=== PATIENT | male | born 1990 | race Caucasian/White ===

== ENCOUNTER → 2021-03-29 07:00 | Outpatient (CLI) | payer OTHER, SELFPAY ==
--- NOTE | ~2021-03-29 | MR_ITS ---
EXAMINATION: MR shoulder LT wo con DATE: 03/29/2021 07:36 INDICATION: Left shoulder pain. TECHNIQUE: Magnetic resonance imaging (MRI) of the left shoulder was performed without intravenous co ntrast. Sequences included axial PD-weighted FS FSE, coronal oblique PD-weighted FS FSE and T2-weight ed FS FSE, and sagittal oblique T2-weighted FS FSE and T1-weighted FSE. COMPARISON: None. FINDINGS: Coracoacromial arch: The acromion undersurface is curved in morphology (type II). There is mild acromioclavicular joint os teoarthritis with surrounding edema. There is mild subacromial/subdeltoid bursitis. Rotator cuff: There is mild tendinopathy of the junction of supraspinatus and infraspinatus tendons. Teres minor te ndon is normal. Subscapularis tendon is normal. No tear. There is no asymmetric fatty atrophy of the rotator cuff muscle bellies. Biceps tendon and glenoid labrum: Biceps tendon is in bicipital groove. Intra-articular biceps tendon is normal. There is a tear of pos teroinferior glenoid labrum from 7:00 to 9:00. There is a 4 mm paralabral cyst inferoposteriorly at 7 :00. Fluid: There is no glenohumeral joint effusion. Bones/cartilage: Glenoid cartilage is normal. Humeral head cartilage is normal. IMPRESSION: 1. Mild acromioclavicular joint osteoarthritis. 2. Mild subacromial/subdeltoid bursitis. 3. Posteroinferior labral tear with small paralabral cyst. Reviewed, dictated and finalized at location A.
== END ==
PROVIDERS: PCP Emergency Medicine; Visit Provider Emergency Medicine
DX: M19.012 Primary osteoarthritis, left shoulder (principal); M75.52 Bursitis of left shoulder; S43.492A Other sprain of left shoulder joint, initial encounter; X58.XXXA Exposure to other specified factors, initial encounter
CPT/HCPCS: 73221

== ENCOUNTER 2021-09-27 17:18 | Outpatient (CLI) | payer OTHER, SELFPAY | END 2021-09-27 17:19 | disposition home or self-care (01) | LOC: ANHLAB 17:20 | PROVIDERS: PCP Emergency Medicine; Visit Provider Anesthesiology | DX: K40.90 Unilateral inguinal hernia, without obstruction or gangrene, not specified as recurrent (principal); Z01.818 Encounter for other preprocedural examination | CPT/HCPCS: 36415; 86850; 86900; 86901 ==

== ENCOUNTER 2021-10-05 01:30 | Day surgery (SDC) | payer OTHER, SELFPAY ==
[2021-09-27 14:02] VITALS: BMI 26.4
--- NOTE | 2021-09-27 14:07 | SUR.PREOP ---
Report to the Outpatient Waiting Room, entrance under the green pavilion located off [facility], at time 10:00 on date 10/05/21. OR Time: 12:00. - You and your visitor will be asked a series of questions to screen for COVID 19 for your protection. - Only one visitor is allowed at this time. - The patient visitor is requested to leave or wait in car when not with patient. - A mask is required within the hospital. Patients may have clear liquids (water, carbonated beverages, clear teas, apple juice) until 3 hours prior to surgery with a maximum of 20 ounces. - No food from midnight until time of surgery - Infants may have breast milk until 4 hours before surgery, formula 6 hours prior to surgery. - Children will be allowed to drink immediately following surgery. If applicable, please bring a bottle or sippy cup to assist with drinking. Juice, water, soda, and popsicles are readily available. For infants on formula, please bring formula the day of surgery. Pacifiers are allowed. Take the following medications with a SIP of water the morning of surgery: N/A Medications to discontinue per physician N/A Date to take last dose N/A Please no make-up, nail yi, hairspray, perfume, deodorant, or body powder the day of surgery. No jewelry (including any body piercings) or valuables the day of surgery, leave them at home. Please take a shower or bath the night before, or the morning of, surgery with an antibacterial soap. Wear comfortable, loose fitting clothing. Children are encouraged to wear pajamas. - Jewelry must be removed prior to entering the operating room. Rings and piercings that are not removed may be cut off. - The hospital will not accept responsibility for valuables. - Please leave all valuables, including medications, at home the day of surgery. If you are going home after surgery, a licensed vibratory pile driver must drive you home. - NO public transportation without another adult. - We recommend that an adult stay with you for 24 hours following discharge. - We also recommend that you do not drive, make important decision, drink alcoholic beverages, or take any drugs that were not prescribed by your health care provider for at least 24 hours after your discharge time. For Pediatric surgeries, we recommend two adults accompany the child home (only one inside the building at this time). Follow any additional instructions given to you from your surgeon. If you or anyone in your household have experienced Covid symptoms in the past week, please notify your surgeon or the nurse liaison at the phone number below for possible testing. Telephone instructions given to TEVIN STEPHENSON and asked if any additional questions and then verbalized understanding. Patient advised to call surgeon office or pre surgery nurse liaison [phone] if any additional questions.
[2021-10-05] VITALS (12 sets, daily range): BP systolic 132–150; BP diastolic 78–99; PULSE 73–87; RESP 9–18; TEMP 36.4–36.9; O2SAT 98–100; BMI 25.7
[2021-10-05] MEDS: KETOROLAC 15 MG/ML VIAL (*BKC) IV PUSH (10:29)
[2021-10-05] MEDS: LACTATED RINGERS 1,000 ML 30 ML IV CONT ×2 (10:29→13:53)
[2021-10-05] MEDS: ACETAMINOPHEN 500 MG TABLET 1000 MG PO (10:29)
--- NOTE | 2021-10-05 11:19 | P.PNAN_ITS ---
Anes - Initial Pre Proc Eval Procedure: Operation Date: 10/05/21 12:00 Proposed Procedures p Robotic Assisted Right Inguinal Hernia Repair with Mesh - Kennedi Lubin MD Date/Time: 10/05/21 11:19 Surgeon: Kennedi Lubin MD Pre Op Diagnosis: Rt Ing Hernia Patient Data Age: 30 Gender: M Height: 1.85 m Weight: 88.4 kg Last Vital Signs Temp 36.9 C 10/05/21 10:14 Pulse 76 10/05/21 10:14 Resp 18 10/05/21 10:14 BP 144/87 H 10/05/21 10:14 Pulse Ox 99 10/05/21 10:14 Allergies Allergy/AdvReac Type Severity Reaction Status Date / Time No Known Allergies Allergy Verified 10/05/21 10:10 Home Medications Medication Instructions Recorded Confirmed Type albuterol sulfate 90 mcg/actuation 1 inh INHALATION PRN PRN 04/06/21 10/05/21 History aerosol inhaler fluticasone propionate 45 2 puff INHALATION PRN PRN 04/06/21 10/05/21 History mcg-salmeterol 21 mcg/actuation HFA inhaler Zyrtec 1 cap PO DAILY 09/27/21 09/27/21 History Patient hx anesthesia problems: post op nausea/vomiting Family hx anesthesia problems: none Results Review: All pre-operative results and documents have been reviewed as part of the pre-operative evaluation. [facility] Past Medical History Medical History Asthma Left shoulder pain Surgical History Surgical History No significant past surgical history Family History Family History Mother Patient's mother is in good health Father Patient's father is in good health Social History Social History Smoking status: Never smoker Smokeless tobacco user: chewing tobacco Second hand tobacco smoke exposure: No Alcohol intake: current Substance use: never Substance use type: does not use Living arrangements: alone Additional occupation/education comments: LEGAL CONSULTANT Spiritual care concerns: No Anes - Eval Final PreProcedure Day of Procedure 10/05/21 11:19 Patient weight: overweight Heart: regular rate and rhythm Lungs: clear to auscultation Airway: Mallampati scale class II Neurological: alert and oriented Last oral intake: >/= 8 hours ASA classification: II Emergent: no Anesthetic plan: proceed Anesthesia type and monitoring: general ETT and standard monitoring Results Review: All pre-operative results and documents have been reviewed as part of the pre-operative evaluation. Informed Consent: The patient's anesthetic plan and its attendant risks and benefits were discussed with the patient/family/POA. Questions were solicited and answers provided to the satisfaction of the patient/family/POA.
--- NOTE | 2021-10-05 11:45 | WPDHPUPDATE1 ---
History and Physical Update Update Date/Time: 10/05/21 11:45 History and Physical has been reviewed, including an updated exam of the patient. There are NO changes in the patient's condition. Risks, benefits, and alternatives have been discussed and questions answered. Patient agrees to proceed with procedure.
[2021-10-05] MEDS: ceFAZolin 2 GM/D5W 50 ML 2 GM/50 ML BAG IVPB (11:58)
--- NOTE | 2021-10-05 13:40 | W.PM.PROC2 ---
Procedure Note - Detailed Date of Procedure 10/05/21 Pre-op Diagnosis right inguinal hernia Post-op Diagnosis Same Procedure Performed robotic assisted right inguinal hernia repair with mesh Surgeon Kennedi Lubin MD Anesthesia General Indications 30 y/o M presenting c reducilbe RIH Findings indirect right inguinal hernia Description of Procedure Patient was brought into the operating room and placed in the supine position. After adequate induction of general anesthesia, the patient was prepped and draped in normal sterile fashion. A time-out was then done to verify the patient's identity, as well as the procedure being performed. Began by making a 8 mm incision in the supraumbilical region, a Veress needle was then placed into the peritoneal cavity. CO2 gas was then insufflated and after adequate pneumoperitoneum was achieved, the Veress needle was removed. I then placed an 8 mm trocar through this incision. I then placed the endoscope through this trocar site and under direct visualization placed 2 further 8 mm ports in the right and left mid abdomen. The [employer] robot was then docked to the 3 trocar sites. I then scrubbed out and went to the robotic console. Upon examining the pelvis, it was noted that the patient had a moderate right inguinal hernia. The left side was examined and no hernia defect was noted. I began by making a preperitoneal flap approximately 6 cm superior to the defect. This flap was carried medially past the umbilical ligaments in laterally to the transversalis. It then began dissection of my medial compartment taking this down to the pubic tubercle. I then began the lateral dissection taking this down to the transversalis fascia. Once these compartments were achieved, I began dissection around the cord structures. A large indirect hernia was noted at this point. Using careful dissection, was able to reduce indirect hernia sac off the cord structures. Once this was adequately done, I went ahead and placed a large piece of 3D Max mesh into the abdominal cavity. The mesh was carefully positioned, centering the center of the mesh over the indirect defect. Once this was done, was very satisfied with our repair. Using 3-0 Vicryl sutures, I tacked the mesh medially to Kiel's ligament. Two lateral sutures were placed from the mesh to the transversalis fascia. I then closed the peritoneal flap with a running 2.0 V Lock suture. The abdomen was then desufflated, and all ports were removed. All incisions were then closed with the 4.0 monocryl suture. Dermabond was placed on each wound. The patient tolerated the procedure well, was extubated in the operating room postoperatively, and will now be transferred to the recovery room in stable condition. Implants large 3DMax mesh Estimated Blood Loss 5 Drains No Packing No Pathology None sent Complications No immediate complications Condition Stable Disposition PACU
--- NOTE | 2021-10-05 14:07 | SUR.PHASEI ---
called dr black,pt states feeling tightness with breathing,no wheezing ausculated,hx asthma, orders for nebulizer respiratory tx
[2021-10-05] MEDS: ALBUTEROL SULFATE NEB 2.5 MG/0.5 ML INH INHALATION (14:12)
[2021-10-05] MEDS: fentaNYL CITRATE INJ (*CRX) 100 MCG/2 ML VIAL 25 MCG IV PUSH ×4 (14:26→14:44)
[2021-10-05] MEDS: oxyCODONE HCL (*CRX) 5 MG TAB IR PO (15:12)
[2021-10-05] MEDS: ONDANSETRON INJ 4 MG/2 ML VIAL IV PUSH (15:44)
[2021-10-05] MEDS: SCOPOLAMINE 1.5 MG PATCH TRANSDERM (15:44)
== END 2021-10-05 16:16 | disposition home or self-care (01) ==
PROVIDERS: PCP Emergency Medicine; Visit Provider Surgery
PROC: 8E0Y4CZ Robotic Assisted Procedure of Lower Extremity, Percutaneous Endoscopic Approach (ICD-10-PCS; CPT 49650; principal; 2021-10-05 12:00)
DX: K40.90 Unilateral inguinal hernia, without obstruction or gangrene, not specified as recurrent (principal)
CPT/HCPCS: 49650; 94640; A9270; C1781; J0690; J1100; J1885; J2250; J2405; J2704; J3010; J7030; J7120

== ENCOUNTER → 2022-01-16 08:13 | Outpatient (CLI) | payer OTHER, SELFPAY ==
--- NOTE | ~2022-01-16 | CT_ITS ---
EXAMINATION: CT abdomen pelvis wo con DATE: 01/16/2022 08:51 INDICATION: Right lower quadrant pain TECHNIQUE: Computed tomography (CT) of the abdomen and pelvis was performed without intravenous contr ast. The dose-length product was 543.53 mGy-cm. Automated exposure control and iterative reconstructi on technique were employed. COMPARISON: CT dated 12/21/2017. FINDINGS: Lung bases are unremarkable. Heart size is normal. No significant pleural or pericardial ef fusion. Small 1 cm hypodense lesion right hepatic lobe, most likely benign cyst or hemangioma. The sp ant, pancreas, adrenal glands and kidneys are unremarkable. Gallbladder is present. Nonobstructive b owel gas pattern. The appendix is unremarkable. Colonic diverticulosis without evidence for diverticu litis. No renal/ureteral stones or hydronephrosis. No free air or free fluid. There is suggestion of previous right lower abdominal wall/inguinal hernia repair. Clinically correlate. No acute osseous ab normality. IMPRESSION: 1. No acute abdominal abnormality. Reviewed, dictated and finalized at location B.
== END ==
PROVIDERS: PCP Surgery; Visit Provider Surgery
DX: R10.31 Right lower quadrant pain (principal); Z98.890 Other specified postprocedural states; Z87.19 Personal history of other diseases of the digestive system
CPT/HCPCS: 74176

== ENCOUNTER 2024-03-04 10:54 | Outpatient (CLI) | payer SELFPAY ==
--- NOTE | ~2024-03-04 | XR_ITS ---
EXAMINATION: XR UGIAC wo kub DATE: 03/04/2024 11:36 INDICATION: Stress esophageal reflux TECHNIQUE: Thick barium contrast with gas effervescent crystals were administered orally. Fluoroscop ic images of the esophagus, stomach, and proximal duodenum were obtained in various projections. The reafter, overhead images of the abdomen were performed. 1 minutes of fluroscopy. DAP 15. FINDINGS: CT dated 01/16/2022 The esophagus is normal in caliber, without mucosal lesions or strictures. There is normal esophagea l peristalsis. There is a small hiatal hernia. Small volume of gastroesophageal reflux identified du ring the examination. The gastric folds are normal. The proximal duodenum is also normal in appearance. IMPRESSION: 1. Small hiatal hernia with gastroesophageal reflux. Reviewed, dictated and finalized at location B.
== END 2024-03-04 10:55 | disposition home or self-care (01) ==
PROVIDERS: PCP Surgery; Visit Provider Emergency Medicine
DX: K21.9 Gastro-esophageal reflux disease without esophagitis (principal); K44.9 Diaphragmatic hernia without obstruction or gangrene
CPT/HCPCS: 74246

== ENCOUNTER 2024-05-12 00:53 | Day surgery (SDC) | payer BC, SELFPAY ==
[2024-04-29 14:06] VITALS: BMI 29.0
[2024-05-12 12:12] VITALS: BP 137/94; PULSE 84; RESP 18; TEMP 36.2; O2SAT 100
[2024-05-12] MEDS: LACTATED RINGERS 1,000 ML 150 ML IV CONT (12:20)
--- NOTE | 2024-05-12 12:30 | WPDANESEPPF ---
Anes - Initial Pre Proc Eval Procedure: Operation Date: 05/12/24 13:30 Proposed Procedures p Esophagogastroduodenoscopy - Korey Booth DO Date/Time: 05/12/24 12:30 Surgeon: Korye Booth DO Pre Op Diagnosis: Hiatal hernia Patient Data Age: 33 Gender: M Height: 1.85 m Weight: 97.2 kg Last Vital Signs Temp 36.2 C L 05/12/24 12:12 Pulse 84 05/12/24 12:12 Resp 18 05/12/24 12:12 BP 137/94 H 05/12/24 12:12 Pulse Ox 100 05/12/24 12:12 O2 Del Method Room Air 05/12/24 12:12 Allergies Allergy/AdvReac Type Severity Reaction Status Date / Time No Known Allergies Allergy Verified 05/12/24 12:10 Home Medications ?Medication ?Instructions ?Recorded ?Confirmed ?Type albuterol sulfate 90 mcg/actuation 1 inh inhalation PRN PRN 04/06/21 04/29/24 History aerosol inhaler (Ventolin HFA) Respiratory Distress fluticasone propionate 45 2 puff inhalation PRN PRN 04/06/21 04/29/24 History mcg-salmeterol 21 mcg/actuation Respiratory Distress HFA inhaler (Advair HFA) Zyrtec 1 cap PO DAILY 09/27/21 05/12/24 History zolpidem 5 mg tablet (Ambien) 5 mg PO PRN PRN Insomnia 04/27/24 04/29/24 History Testosterone Replacement Therapy 0.99 ml subcut WEEKLY 04/29/24 05/12/24 History (Trt) Patient hx anesthesia problems: post op nausea/vomiting Family hx anesthesia problems: none Results Review: All pre-operative results and documents have been reviewed as part of the pre-operative evaluation. [facility] Past Medical History Medical History Left shoulder pain Asthma Surgical History Surgical History H/O right inguinal hernia repair Robotic assisted right inguinal hernia repair with mesh /. Family History Family History Mother Patient's mother is in good health Father Patient's father is in good health Social History Social History Years smoked: 4 Smoking status: Former smoker Tobacco type: smokeless tobacco Smokeless tobacco user: chewing tobacco Second hand tobacco smoke exposure: No Alcohol intake: current Substance use: never Substance use type: does not use Do You Feel Safe in your Home?: Yes Lack of Transportation: No Lack of Food: Never True Current Housing: I Have Housing Concerned About Future Housing: No Difficulty Paying Gas/Electric Bills: No Difficulty Paying for Meds: No Currently Unemployed: No Education: Trade/Vocational Certificate Difficulty w/ Childcare or Family Care: Decline to Answer Living arrangements: alone Occupation/Education: occupation 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 Informed Consent: The patient's anesthetic plan and its attendant risks and benefits were discussed with the patient/family/POA. Questions were solicited and answers provided to the satisfaction of the patient/family/POA.
--- NOTE | 2024-05-12 12:37 | WPDHPUPDATE1 ---
History and Physical Update Update Date/Time: 05/12/24 12:37 History and Physical has been reviewed, including an updated exam of the patient. There are NO changes in the patient's condition. Risks, benefits, and alternatives have been discussed and questions answered. Patient agrees to proceed with procedure.
[2024-05-12 12:58] VITALS: BP 119/77; PULSE 87; RESP 13; O2SAT 98
[2024-05-12 13:08] VITALS: BP 121/84; PULSE 80; RESP 17; O2SAT 99
[2024-05-12 13:18] VITALS: BP 123/95; PULSE 77; RESP 21; O2SAT 100
== END 2024-05-12 13:35 | disposition home or self-care (01) ==
PROVIDERS: PCP Emergency Medicine; Visit Provider Surgery
PROC: 0DJ08ZZ Inspection of Upper Intestinal Tract, Via Natural or Artificial Opening Endoscopic (ICD-10-PCS; CPT 43235; principal; 2024-05-12 13:30)
DX: K44.9 Diaphragmatic hernia without obstruction or gangrene (principal); K29.00 Acute gastritis without bleeding; K21.9 Gastro-esophageal reflux disease without esophagitis; J45.909 Unspecified asthma, uncomplicated; F17.220 Nicotine dependence, chewing tobacco, uncomplicated; Z98.890 Other specified postprocedural states; Z79.51 Long term (current) use of inhaled steroids
CPT/HCPCS: 43239; 88305; 88342; J2003; J2704; J7120

== ENCOUNTER 2024-12-24 14:24 | Emergency (ER) | payer BC, SELFPAY ==
[2024-12-24 14:31] VITALS: BP 131/84; PULSE 86; RESP 18; TEMP 36.8; O2SAT 99
[2024-12-24] MEDS: TETANUS,DIPHTHERIA,AC PERTUSSIS ADULT (0.5 ML) BOOSTRIX IM (15:02)
--- NOTE | 2024-12-24 15:04 | ED_ITS ---
HPI - Wound/Laceration General Chief Complaint: Wound/Laceration Stated Complaint: Left Hand Wound Check Time Seen by Provider: 12/24/24 14:25 Source: patient Mode of arrival: ambulatory Limitations: no limitations History of Present Illness HPI narrative: Patient is a 34-year-old male who presents with superficial cuts to left hand from sheet metal. Patient states he continues to ooze. Patient requesting skin glue since he works with his hands. Tetanus shot is not up-to-date. Related Data Home Medications ?Medication ?Instructions ?Recorded ?Confirmed ?Last Taken ?Type albuterol sulfate 90 mcg/actuation 1 inh inhalation PRN PRN 04/06/21 04/29/24 09/24/21 History aerosol inhaler (Ventolin HFA) Respiratory Distress fluticasone propionate 45 2 puff inhalation PRN PRN 04/06/21 04/29/24 Unknown History mcg-salmeterol 21 mcg/actuation Respiratory Distress HFA inhaler (Advair HFA) Zyrtec 1 cap PO DAILY 09/27/21 05/12/24 05/11/24 History zolpidem 5 mg tablet (Ambien) 5 mg PO PRN PRN Insomnia 04/27/24 04/29/24 Unknown History Testosterone Replacement Therapy 0.99 ml subcut WEEKLY 04/29/24 05/12/24 05/10/24 History (Trt) Allergies Allergy/AdvReac Type Severity Reaction Status Date / Time No Known Allergies Allergy Verified 12/24/24 15:13 Review of Systems 2 Review of Systems: All systems reviewed & are unremarkable except as noted in HPI and below Constitutional: Constitutional: Denies body ache(s), Denies chills, Denies fatigue, Denies fever(s), Denies headache(s), Denies malaise and Denies weakness Eyes: Eyes: Denies blurry vision, Denies irritation and Denies loss of vision ENT: Denies otalgia, Denies headache(s), Denies nasal discharge, Denies sinus pain and Denies sore throat Cardiovascular: Cardiovascular: Denies chest pain, Denies irregular heart rhythm and Denies dyspnea Respiratory: Respiratory: Denies dyspnea Gastrointestinal: Gastrointestinal: Denies abdominal pain, Denies melena, Denies hematochezia, Denies diarrhea, Denies nausea and Denies vomiting Musculoskeletal: Musculoskeletal: Denies back pain, Denies myalgias and Denies arthralgias Integumentary/Breasts: Skin/Breast: Denies pruritus, Denies rash and Reports wounds Neurologic: Denies headache(s), Denies loss of vision and Denies weakness Psychiatric: Psychiatric: Reports no additional psychiatric complaints Endocrine: Endocrine: Denies fatigue PMFSH Past Medical History Medical History Left shoulder pain Asthma Surgical History Surgical History H/O right inguinal hernia repair Robotic assisted right inguinal hernia repair with mesh 10/05. Family History Family History Mother Patient's mother is in good health Father Patient's father is in good health Social History Social History Years smoked: 4 Smoking status: Former smoker Tobacco type: smokeless tobacco Smokeless tobacco user: chewing tobacco Second hand tobacco smoke exposure: No Alcohol intake: current Substance use: never Substance use type: does not use Do You Feel Safe in your Home?: Yes Lack of Transportation: No Lack of Food: Never True Current Housing: I Have Housing Concerned About Future Housing: No Difficulty Paying Gas/Electric Bills: No Difficulty Paying for Meds: No Currently Unemployed: No Education: Trade/Vocational Certificate Difficulty w/ Childcare or Family Care: Decline to Answer Living arrangements: alone Occupation/Education: occupation 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 There is no relevant family history pertinent to the presenting complaint. Exam 2 Const: General: cooperative, healthy appearing, comfortable, no acute distress and well nourished Nutritional Appearance: well nourished O rientation/consciousness: patient oriented x3 Limitations: no limitations HENMT: Head: normal to inspection, normocephalic and atraumatic Ears: h earing grossly normal bilaterally and external ears normal Face/Nose/Sinus: N ormal external nose present, normal facial exam and face symmetric Face and sinus: normal facial exam and face symmetric Mouth: Yes lip normal Eyes: General: appearance normal, both eyes and all related structures A lignment and Position: alignment normal and position normal Periorbital: p eriorbital findings normal Eyelids: eyelids normal Pupils: Equal, round and reactive pupils present EOM: EOMs intact bilaterally Neck: Neck: normal visual inspection, full ROM and supple Chest: Chest palpation & inspection: normal inspection of the chest Resp: Effort & Inspection: normal respiratory effort and able to speak in complete sentences Auscultation: clear to auscultation bilaterally Cardio: Rate: regular rate Rhythm: regular rhythm Heart sounds: S1 normal heart sound present and S2 normal heart sound present GI: Inspection: normal to inspection Skin: General skin exam: normal color and no rashes or lesions noted Neuro: General: patient oriented x3 and moves all extremities Cranial nerves: Yes Equal, round and reactive pupils present Speech: normal speech Gait exam (Neuro): Normal gait present Extrem: General: normal to inspection, full ROM and no edema Hand/finger images: 1. 5.5 superficial laceration. No active bleeding Psych: Appearance: grossly normal and well kempt Mental Status: mental status grossly normal Speech and movement: Normal speech and movement present Affect: normal affect Attitude: cooperative Thought process: Normal thought process present Course Course Emergency Course: Patient is aware of diagnosis, understands and agrees to treatment plan. Anticipatory guidance given. Patient agrees to follow-up as directed and is aware of reasons to seek care at the emergency department. Portions of this record may have been created with voice recognition software Level of Care: Express Care Visit Vital Signs Vital signs: Vital Signs Temperature 36.8 C 12/24/24 14:31 Pulse Rate 86 12/24/24 14:31 Respiratory Rate 18 12/24/24 14:31 Blood Pressure 131/84 12/24/24 14:31 Pulse Oximetry 99 12/24/24 14:31 Oxygen Delivery Room Air 12/24/24 14:31 Temperature 36.8 C 12/24/24 14:31 Pulse Rate 86 12/24/24 14:31 Respiratory Rate 18 12/24/24 14:31 Blood Pressure 131/84 12/24/24 14:31 Pulse Oximetry 99 12/24/24 14:31 Oxygen Delivery Room Air 12/24/24 14:31 Reviewed MDM - Wound/Laceration MDM Narrative Medical decision making narrative: Superficial laceration covered with skin glue since patient is unable to keep wound covered with Band-Aids at work. Tetanus shot updated Pt well hydrated appearing, in no respiratory distress, hemodynamically stable. Recommend supportive care. The patient is stable at time of discharge the clinical impression was discussed and the patient was given the opportunity to ask questions, which were addressed as completely as possible given the information available at present. Anticipatory guidance and return to care precautions were discussed and the importance of primary care follow-up was stressed and encouraged. The patient voiced understanding of the plan, indications to return, and the need for follow-up. Exam findings show no acute concerns or changes Patient is appropriate for outpatient treatment and follow-up. Differential Diagnosis Differential diagnosis: Likely laceration (Superficial), abrasion and avulsion of skin Medical Records Attestation: I reviewed the patient's medical records. Discharge Plan Discharge Clinical Impression: Abrasion of hand Qualifiers: Encounter type: initial encounter Laterality: left Qualified Code(s): S60.512A - Abrasion of left hand, initial encounter Patient Disposition: Home Condition: Stable Instructions: Diphtheria/Acellular Pertussis/Tetanus Booster Vaccine (By injection), Abrasion (ED) Additional Instructions: Your tetanus shot was updated Skin adhesive care: -adhesive works like a bandage; do not use antibiotic onitment as it can break down the adhesive -You can shower while the adhesive is on your skin, but do not take a bath or soak or scrub the area for 7-10 days. Dry your skin by patting it gently with a towel. -The adhesive will peel off on its own; usually by 5-10days. If after 10 days, you still have adhesive on you, you can use antibiotic ointment or petroleum jelly to get it off. After you heal, you should protect the scar from the sun. Use sunscreen on the area or wear clothes or a hat that covers the scar. Follow up with your PCP is needed Patient Language: Wallisian Prescriptions: No Action Advair HFA 45-21 mcg/actuation HFA aerosol inhaler 2 puff inhalation PRN PRN (Reason: Respiratory Distress) albuterol sulfate [Ventolin HFA] 90 mcg/actuation HFA aerosol inhaler 1 inh inhalation PRN PRN (Reason: Respiratory Distress) zolpidem [Ambien] 5 mg tablet 5 mg PO PRN PRN (Reason: Insomnia) Rx Instructions: may repeat once if no response in 30-60 minutes Testosterone Replacement Therapy (Trt) 0.99 ml subcut WEEKLY Rx Instructions: Sundays. pantoprazole 40 mg tablet,delayed release (DR/EC) 40 mg PO QAM Qty: 30 5RF Zyrtec 1 cap PO DAILY Follow-up/Referrals: Oliverio Stevenson MD [Primary Care Provider] - 3 Days Time of Disposition: 15:10
== END 2024-12-24 15:15 | disposition home or self-care (01) ==
PROVIDERS: Emergency Provider Nurse Practitioner Family; PCP Emergency Medicine
DX: S60.512A Abrasion of left hand, initial encounter (principal); W26.8XXA Contact with other sharp object(s), not elsewhere classified, initial encounter; Z23 Encounter for immunization; J45.909 Unspecified asthma, uncomplicated; Z87.891 Personal history of nicotine dependence
CPT/HCPCS: 90471; 90715; 99212; G0463

== ENCOUNTER 2025-01-11 12:05 | Emergency (ER) | payer BC, SELFPAY ==
[2025-01-11 12:17] VITALS: BP 141/90; PULSE 96; RESP 18; TEMP 36.4; O2SAT 96
--- NOTE | 2025-01-11 12:46 | ED.WOUNDLAC ---
HPI - Wound/Laceration General Chief Complaint: Wound/Laceration Stated Complaint: Right Hand Thumb Laceration Time Seen by Provider: 01/11/25 12:48 Source: patient, RN notes reviewed and old records reviewed Mode of arrival: ambulatory Limitations: no limitations History of Present Illness HPI narrative: 34-year-old male presents to the [facility] with 1.5 cm cut to the right thumb. States that he cut it on she metal. Did receive a tetanus shot about a week ago. Bleeding is controlled. Most distal area, opens, superficial proximal aspect. Patient tetanus UTD: Yes Treatments prior to arrival: bandage Related Data Home Medications ?Medication ?Instructions ?Recorded ?Confirmed ?Last Taken ?Type albuterol sulfate 90 mcg/actuation 1 inh inhalation PRN PRN 04/06/21 04/29/24 09/24/21 History aerosol inhaler (Ventolin HFA) Respiratory Distress fluticasone propionate 45 2 puff inhalation PRN PRN 04/06/21 04/29/24 Unknown History mcg-salmeterol 21 mcg/actuation Respiratory Distress HFA inhaler (Advair HFA) Zyrtec 1 cap PO DAILY 09/27/21 05/12/24 05/11/24 History zolpidem 5 mg tablet (Ambien) 5 mg PO PRN PRN Insomnia 04/27/24 04/29/24 Unknown History Testosterone Replacement Therapy 0.99 ml subcut WEEKLY 04/29/24 05/12/24 05/10/24 History (Trt) Allergies Allergy/AdvReac Type Severity Reaction Status Date / Time No Known Allergies Allergy Verified 01/11/25 12:26 Review of Systems Review of Systems: All systems reviewed & are unremarkable except as noted in HPI and below Constitutional: Constitutional: Reports no additional constitutional complaints Respiratory: Respiratory: Denies cough Musculoskeletal: Musculoskeletal: Reports no additional musculoskeletal complaints Integumentary/Breasts: Skin/Breast: Reports as per HPI and Reports wounds PMFSH Past Medical History Medical History Left shoulder pain Asthma Surgical History Surgical History H/O right inguinal hernia repair Robotic assisted right inguinal hernia repair with mesh 10/05. Family History Family History Mother Patient's mother is in good health Father Patient's father is in good health Social History Social History Years smoked: 4 Smoking status: Former smoker Tobacco type: smokeless tobacco Smokeless tobacco user: chewing tobacco Second hand tobacco smoke exposure: No Alcohol intake: current Substance use: never Substance use type: does not use Do You Feel Safe in your Home?: Yes Lack of Transportation: No Lack of Food: Never True Current Housing: I Have Housing Concerned About Future Housing: No Difficulty Paying Gas/Electric Bills: No Difficulty Paying for Meds: No Currently Unemployed: No Education: Trade/Vocational Certificate Difficulty w/ Childcare or Family Care: Decline to Answer Living arrangements: alone Occupation/Education: occupation Additional occupation/education comments: [employer] Spiritual care concerns: No Comments At the time of my signature, I reviewed and agree with the nursing past medical, surgical, social, and family history. There is no relevant family history pertinent to the patient complaint. Exam Const: General: cooperative, healthy appearing, comfortable, no acute distress, well developed, alert and well nourished Nutritional Appearance: well nourished Orientation/consciousness: patient oriented x3 Limitations: no limitations HENMT: Head: normal to inspection Eyes: General: appearance normal, both eyes and all related structures Alignment and Position: alignment normal Neck: Neck: normal visual inspection, full ROM, no lymphadenopathy and no meningeal signs Chest: Chest palpation & inspection: normal inspection of the chest Resp: Effort & Inspection: normal respiratory effort and able to speak in complete sentences Cardio: Rate: regular rate Skin: General skin exam: normal color and no rashes or lesions noted Other: 1.5 cm laceration palmar aspect right thumb Neuro: General: patient oriented x3, gait normal, moves all extremities and no meningeal signs Cognition (Neuro): normal cognition Speech: normal speech Gait exam (Neuro): Normal gait present Extrem: General: normal to inspection, full ROM, capillary refill normal and normal gait Right upper extremity: Extremity exam: right hand laceration (Distal palmar thumb) Psych: Appearance: grossly normal and well kempt Mental Status: mental status grossly normal Speech and movement: Normal speech and movement present and Clear speech present Affect: normal affect Attitude: cooperative Course Course Level of Care: Express Care Visit Vital Signs Vital signs: Vital Signs Temperature 97.6 F 01/11/25 12:17 Pulse Rate 96 01/11/25 12:17 Respiratory Rate 18 01/11/25 12:17 Blood Pressure 141/90 H 01/11/25 12:17 Pulse Oximetry 96 01/11/25 12:17 Oxygen Delivery Room Air 01/11/25 12:17 Temperature 97.6 F 01/11/25 12:17 Pulse Rate 96 01/11/25 12:17 Respiratory Rate 18 01/11/25 12:17 Blood Pressure 141/90 H 01/11/25 12:17 Pulse Oximetry 96 01/11/25 12:17 Oxygen Delivery Room Air 01/11/25 12:17 Reviewed Procedures Laceration Laceration 1: Date: 01/11/25 Time: 13:15 Site: hand (Tip of thumb) Side (If applicable): right Size (cm): 1.5 Description: linear Depth: simple, single layer Local Anesthetic: lidocaine 1% Amount of anesthesia used (mL): 3 Pre-repair: wound explored and irrigated ====== Skin Level ====== Skin layer closed with: nylon Size (cm): 5-0 Number of sutures: 2 Technique: simple, interrupted ====== Subcutaneous Layer ====== ====== Muscle Layer ====== ====== Tendon Layer ====== MDM - Wound/Laceration MDM Narrative Medical decision making narrative: Patient sitting in exam room. Patient is nontoxic, vitals stable. Patient with a laceration to the thumb, 2 sutures placed. Patient appropriate for outpatient treatment with close follow-up Discharge instructions reviewed with patient, as well as provided in writing per nursing staff. The instructions also include specific and strict return/GO TO THE ER as well as f/u information. All questions have been answered, and the patient deny any further questions with discharge and discharge plan. Some parts of this dictation were generated by voice recognition software and may contain typographical and/or grammatical inaccuracies. Differential Diagnosis Differential diagnosis: Likely laceration, abrasion and avulsion of skin Critical Care Time Critical Care Time Critical Care Time: No Discharge Plan Discharge Clinical Impression: Laceration of thumb Patient Disposition: Home Condition: Stable Instructions: Antibiotic Form, Finger Laceration (ED) Additional Instructions: Wash with warm soapy water twice daily. Pat dry Keep covered when out at home. Leave open to air when at home. Take Tylenol and apply ice as needed for pain Follow-up with primary care provider in 7-10 days for suture removal Patient Language: Syriac Prescriptions: No Action Advair HFA 45-21 mcg/actuation HFA aerosol inhaler 2 puff inhalation PRN PRN (Reason: Respiratory Distress) albuterol sulfate [Ventolin HFA] 90 mcg/actuation HFA aerosol inhaler 1 inh inhalation PRN PRN (Reason: Respiratory Distress) zolpidem [Ambien] 5 mg tablet 5 mg PO PRN PRN (Reason: Insomnia) Rx Instructions: may repeat once if no response in 30-60 minutes Testosterone Replacement Therapy (Trt) 0.99 ml subcut WEEKLY Rx Instructions: Sundays. pantoprazole 40 mg tablet,delayed release (DR/EC) 40 mg PO QAM Qty: 30 5RF Zyrtec 1 cap PO DAILY Follow-up/Referrals: Oliverio Stevenson MD [Primary Care Provider] - 1 Week ([facility] follow-up, suture removal, blood pressure check 141/90) Stand Alone Forms: Work/School Release IP Time of Disposition: 13:24
[2025-01-11] MEDS: LIDOCAINE 1% LOCAL INJ 2 ML AMPUL 4 ML INFILTRATE (13:12)
== END 2025-01-11 13:44 | disposition home or self-care (01) ==
PROVIDERS: Emergency Provider Nurse Practitioner; PCP Emergency Medicine
DX: S61.011A Laceration without foreign body of right thumb without damage to nail, initial encounter (principal); W45.8XXA Other foreign body or object entering through skin, initial encounter; Z87.891 Personal history of nicotine dependence; J45.909 Unspecified asthma, uncomplicated
CPT/HCPCS: 12001; 99212; G0463; J2003